=== PATIENT | male | born 1980 | race Caucasian/White ===

== ENCOUNTER 2024-12-23 19:51 | Observation (INO) | payer BC ==
[2024-12-23 20:18] LABS: Basophils % (A) 1 %; Eosinophils # (A) 0.2 k/uL (0-0.7); Eosinophils % (A) 3 %; HCT 45.8 % (39.0-53.0); HGB 15.4 gm/dL (13.0-17.5); Lymphocytes # (A) 1.7 k/uL (1.0-4.8); Lymphocytes % (A) 24 %; MCH 29.7 pg (25.0-35.0); MCHC 33.6 g/dL (31.0-37.0); MCV 88.2 fL (80.0-100.0); Mean Platelet Volume 8.9; Monocytes # (A) 0.5 k/uL (0-1.0); Monocytes % (A) 7 %; Neutrophils # (A) 4.5 k/uL (1.3-7.7); Neutrophils % (A) 63 %; Platelet Count 172 k/uL (150-450); RBC 5.19 m/uL (4.30-5.90); RDW 13.2 % (11.5-15.5); WBC 7.1 k/uL (3.8-10.6)
[2024-12-23 20:27] LABS: ALT 46 U/L (4-49); AST 32 U/L (17-59); African American GFR (CKD) >90 (>60 ml/min/1.73 sqM); Albumin 4.8 g/dL (3.5-5.0); Alkaline Phosphatase 44 U/L (38-126); Anion Gap 7 mmol/L; Blood Urea Nitrogen 16 mg/dL (9-20); Calcium 9.3 mg/dL (8.4-10.2); Carbon Dioxide 32 mmol/L (22-30); Chloride 101 mmol/L (98-107); Creatine Kinase 220 U/L (55-170); Glucose 144 mg/dL (74-99); Non-African American GFR(CKD) 82 (>60 ml/min/1.73 sqM); Potassium 3.7 mmol/L (3.5-5.1); Sodium 140 mmol/L (137-145); Total Bilirubin 0.8 mg/dL (0.2-1.3); Total Protein 6.9 g/dL (6.3-8.2)
--- NOTE | 2024-12-23 20:38 | CT ---
EXAMINATION TYPE: CODE STROKE: CT brain wo contr DATE OF EXAM: 12/23/2024 COMPARISON: CLINICAL INDICATION: Male, 44 years old with history of Neuro deficit, acute, stroke suspected; PHH, [place], stabbing pain behind right ear x2 days. Since 1845 tonight patient c/o right sided facial numbnes s, blurry vision to right eye, asymmetrical smile. TECHNIQUE: CT of the brain performed without contrast with sagittal and coronal reformats. CT DLP: 306.[address] CTDI: mGy Automated exposure control for dose reduction was used. FINDINGS: There is no acute intracranial hemorrhage, mass effect, or midline shift identified. The ventricles and sulci are within normal limits in size. The globes are intact and the visualized sinuses are marcela ar. IMPRESSION: No acute intracranial hemorrhage, mass effect, or midline shift is seen. [facility], , 12/23/2024 8:36 PM
--- NOTE | 2024-12-23 20:38 | ED ---
General Adult HPI - General Chief complaint: Neuro Symptoms/Deficit Stated complaint: chills ear pain blurry eyes Time Seen by Provider: 12/23/24 19:55 Source: patient, family Mode of arrival: ambulatory Limitations: no limitations - History of Present Illness Initial comments: 44-year-old male with past medical history of hypertension, hyperlipidemia, previously diabetic who presents emergency department with pain behind the right ear. States that the symptoms started 2 days ago. His blood pressure has been running on the high side. Typically this is well-controlled. Tonight at 6:45 PM the patient had sudden onset of right sided facial numbness and facial droop. He reports to some blurred vision to the right eye. He denies any numbness, tingling or weakness in his arm or leg. No expressive aphasia. He denies any head injury. No recent fevers. No history of strokes. He took some Tylenol for the pain behind his ear. No other alleviating, precipitating modifying factors - Related Data Allergies Allergy/AdvReac Type Severity Reaction Status Date / Time No Known Allergies Allergy Verified 12/23/24 20:01 Review of Systems ROS Statement: Those systems with pertinent positive or pertinent negative responses have been documented in the HPI. ROS Other: All systems not noted in ROS Statement are negative. Past Medical History Past Medical History: Diabetes Mellitus, Hyperlipidemia, Hypertension History of Any Multi-Drug Resistant Organisms: None Reported Past Surgical History: Tonsillectomy Past Psychological History: No Psychological Hx Reported Smoking Status: Never smoker Past Alcohol Use History: None Reported Past Drug Use History: None Reported General Exam Limitations: no limitations General appearance: alert, in no apparent distress Head exam: Present: atraumatic, normocephalic, normal inspection Eye exam: Present: normal appearance, PERRL, EOMI. Absent: scleral icterus, conjunctival injection, periorbital swelling ENT exam: Present: other (Patient appears to have a lag with blinking the right eye. He does appear to have flattening of the right nasolabial fold. He is able to wrinkle his forehead at original exam) Neck exam: Present: normal inspection. Absent: tenderness, meningismus, lymphadenopathy Respiratory exam: Present: normal lung sounds bilaterally. Absent: respiratory distress, wheezes, rales, rhonchi, stridor Cardiovascular Exam: Present: regular rate, normal rhythm, normal heart sounds. Absent: systolic murmur, diastolic murmur, rubs, gallop, clicks GI/Abdominal exam: Present: soft, normal bowel sounds. Absent: distended, tenderness, guarding, rebound, rigid Extremities exam: Present: normal inspection, full ROM, normal capillary refill. Absent: tenderness, pedal edema, joint swelling, calf tenderness Back exam: Present: normal inspection Neurological exam: Present: alert, oriented X3 Skin exam: Present: warm, dry, intact, normal color. Absent: rash Course Vital Signs 12/23/24 12/23/24 12/23/24 19:54 20:00 20:05 Temperature 97.8 F Pulse Rate 90 68 74 Respiratory 18 18 Rate Blood Pressure 186/108 143/103 181/100 O2 Sat by Pulse 100 100 Oximetry 12/23/24 12/23/24 20:40 21:01 Temperature Pulse Rate 67 65 Respiratory 16 16 Rate Blood Pressure 171/100 153/98 O2 Sat by Pulse 99 99 Oximetry Medical Decision Making - Medical Decision Making Was pt. sent in by a medical professional or institution (, PA, CLINICAL RESEARCH SPEC, urgent care, hospital, or intermediate...) When possible be specific @ -No Did you speak to anyone other than the patient for history (EMS, parent, family, police, friend...)? What history was obtained from this source @ -Spoke with for history Did you review nursing and triage notes (agree or disagree)? Why? @ -I reviewed and agree with nursing and triage notes Were old charts reviewed (outside hosp., previous admission, EMS record, old EKG, old radiological studies, urgent care reports/EKG's, intermediate records)? Report findings @ -No old charts were reviewed Differential Diagnosis (chest pain, altered mental status, abdominal pain women, abdominal pain men, vaginal bleeding, weakness, fever, dyspnea, syncope, he adache, dizziness, GI bleed, back pain, seizure, CVA, palpatations, mental health, musculoskeletal)? @ -Differential CVA Ischemic stroke, hemorrhagic stroke, brain tumor, atypical migraine, Wernicke's encephalopathy, seizure, multiple sclerosis, meningitis, encephalitis, hypoglycemia, Guillain-Quesada, electrolytes disturbance, myasthenia gravis.... This is not meant to be an all-inclusive list EKG interpreted by me (3pts min.). @ -yes and demonstrates sinus rhythm with a rate of 67. AR interval 192. QRS 109. QTc of 425. No acute ST segment elevations or depressions X-rays interpreted by me (1pt min.). @ -Yes and demonstrates no acute process CT interpreted by me (1pt min.). @ -yes and demonstrates no acute process U/S interpreted by me (1pt. min.). @ -None done What testing was considered but not performed or refused? (CT, X-rays, U/S, labs)? Why? @ -None What meds were considered but not given or refused? Why? @ -tnkase however out way benefits Did you discuss the management of the patient with other professionals (professionals i.e. DrDo, PA, CLINICAL RESEARCH SPEC, lab, RT, psych nurse, director social, interior systems carpenter, teacher, event security officer, transplant case manager)? Give summary @ -Spoke with Dr. Crow about the patient. Also spoke with Dr. Olson who will admit the patient Was smoking cessation discussed for >3mins.? @ -No Was critical care preformed (if so, how long)? @ -yes, 35 minutes for code thrombolytic Were there social determinants of health that impacted care today? How? (Homelessness, low income, unemployed, alcoholism, drug addiction, transportation, low edu. Level, literacy, decrease access to med. care, nursing home, rehab)? @ -No Was there de-escalation of care discussed even if they declined (Discuss DNR or withdrawal of care, Hospice)? DNR status @ -No What co-morbidities impacted this encounter? (DM, HTN, Smoking, COPD, CAD, Cancer, CVA, ARF, Chemo, Hep., AIDS, mental health diagnosis, sleep apnea, morbid obesity)? @ -Hypertension, hyperlipidemia, history of diabetes before weight loss Was patient admitted / discharged? Hospital course, mention meds given and route, prescriptions, significant lab abnormalities, going to OR and other pertinent info. @ -Upon arrival patient seen and evaluated in bed 6. Thorough history and physical exam was performed. Patient does have some flattening of his nasolabial fold. NIH is 1. He does have subjective numbness. Last known well was 1845. Code stroke is activated. I did speak with Dr. Winter CT and CTA was performed. Scans are negative. Did discuss results with the patient and his at bedside. NIH is 1. TNKase is not given as risks of administration are too high. Patient is reevaluated on multiple occasions and patient's facial droop visibly gets worse. His paralysis now involves the right forehead, right eye as well as the lower half of the face. 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 He is started on steroids and valacyclovir. Patient was given an aspirin. Recommended overnight observation for which she was agreeable. Spoke with Dr. Olson for the admission Undiagnosed new problem with uncertain prognosis? @ -No Drug Therapy requiring intensive monitoring for toxicity (Heparin, Nitro, Insulin, Cardizem)? @ -No Were any procedures done? @ -No Diagnosis/symptom? @ -Acute right sided facial droop, suspected Shepherd's Acute, or Chronic, or Acute on Chronic? @ -Acute Uncomplicated (without systemic symptoms) or Complicated (systemic symptoms)? @ -Complicated Side effects of treatment? @ -No Exacerbation, Progression, or Severe Exacerbation? @ -No Poses a threat to life or bodily function? How? (Chest pain, USA, CT, pneumonia, PE, COPD, DKA, ARF, appy, cholecystitis, CVA, Diverticulitis, Homicidal, Suicidal, threat to staff... and all critical care pts) @ -No - Lab Data Result diagrams: 12/23/24 20:05 12/23/24 20:05 Lab Results 12/23/24 12/23/24 12/23/24 Range/Units 20:05 20:05 20:05 WBC 7.1 (3.8-10.6) k/uL RBC 5.19 (4.30-5.90) m/uL Hgb 15.4 (13.0-17.5) gm/dL Hct 45.8 (39.0-53.0) % MCV 88.2 (80.0-100.0) fL MCH 29.7 (25.0-35.0) pg MCHC 33.6 (31.0-37.0) g/dL RDW 13.2 (11.5-15.5) % Plt Count 172 (150-450) k/uL MPV 8.9 Neutrophils % 63 % Lymphocytes % 24 % Monocytes % 7 % Eosinophils % 3 % Basophils % 1 % Neutrophils # 4.5 (1.3-7.7) k/uL Lymphocytes # 1.7 (1.0-4.8) k/uL Monocytes # 0.5 (0-1.0) k/uL Eosinophils # 0.2 (0-0.7) k/uL Basophils # 0.0 (0-0.2) k/uL PT 10.2 (10.0-12.5) sec INR 0.9 (<1.2) APTT 23.1 (22.0-30.0) sec Sodium 140 (137-145) mmol/L Potassium 3.7 (3.5-5.1) mmol/L Chloride 101 (98-107) mmol/L Carbon Dioxide 32 H (22-30) mmol/L Anion Gap 7 mmol/L BUN 16 (9-20) mg/dL Creatinine 1.08 (0.66-1.25) mg/dL Est GFR (CKD-EPI)AfAm >90 (>60 ml/min/1.73 sqM) Est GFR (CKD-EPI)NonAf 82 (>60 ml/min/1.73 sqM) Glucose 144 H (74-99) mg/dL POC Glucose (mg/dL) (70-110) mg/dL POC Glu Metal Furnace Operator ID Calcium 9.3 (8.4-10.2) mg/dL Total Bilirubin 0.8 (0.2-1.3) mg/dL AST 32 (17-59) U/L ALT 46 (4-49) U/L Alkaline Phosphatase 44 (38-126) U/L Creatine Kinase 220 H (55-170) U/L Troponin I (0.000-0.034) ng/mL Total Protein 6.9 (6.3-8.2) g/dL Albumin 4.8 (3.5-5.0) g/dL 12/23/24 12/23/24 Range/Units 20:05 20:51 WBC (3.8-10.6) k/uL RBC (4.30-5.90) m/uL Hgb (13.0-17.5) gm/dL Hct (39.0-53.0) % MCV (80.0-100.0) fL MCH (25.0-35.0) pg MCHC (31.0-37.0) g/dL RDW (11.5-15.5) % Plt Count (150-450) k/uL MPV Neutrophils % % Lymphocytes % % Monocytes % % Eosinophils % % Basophils % % Neutrophils # (1.3-7.7) k/uL Lymphocytes # (1.0-4.8) k/uL Monocytes # (0-1.0) k/uL Eosinophils # (0-0.7) k/uL Basophils # (0-0.2) k/uL PT (10.0-12.5) sec INR (<1.2) APTT (22.0-30.0) sec Sodium (137-145) mmol/L Potassium (3.5-5.1) mmol/L Chloride (98-107) mmol/L Carbon Dioxide (22-30) mmol/L Anion Gap mmol/L BUN (9-20) mg/dL Creatinine (0.66-1.25) mg/dL Est GFR (CKD-EPI)AfAm (>60 ml/min/1.73 sqM) Est GFR (CKD-EPI)NonAf (>60 ml/min/1.73 sqM) Glucose (74-99) mg/dL POC Glucose (mg/dL) 112 H (70-110) mg/dL POC Glu Metal Furnace Operator ID Alistair Ranjana Calcium (8.4-10.2) mg/dL Total Bilirubin (0.2-1.3) mg/dL AST (17-59) U/L ALT (4-49) U/L Alkaline Phosphatase (38-126) U/L Creatine Kinase (55-170) U/L Troponin I <0.012 (0.000-0.034) ng/mL Total Protein (6.3-8.2) g/dL Albumin (3.5-5.0) g/dL Disposition Clinical Impression: Facial droop, Shepherd's palsy Disposition: ADMITTED IP TO THIS HOSP Condition: Stable Is patient prescribed a controlled substance at d/c from ED?: No Time of Disposition: 21:41 Decision to Admit Reason: Admit from EC Decision Date: 12/23/24 Decision Time: 21:41
[2024-12-23 20:47] LABS: INR 0.9 (<1.2); Partial Thromboplastin Time 23.1 sec (22.0-30.0); Prothrombin Time 10.2 sec (10.0-12.5)
[2024-12-23 20:53] LABS: Glucose,Whole Blood 112 mg/dL (70-110)
--- NOTE | 2024-12-23 21:04 | CT ---
EXAMINATION TYPE: CT angio head neck DATE OF EXAM: 12/23/2024 8:58 PM COMPARISON: None. CLINICAL INDICATION: Male, 44 years old with history of Neuro deficit, acute, stroke suspected, [place], s tabbing pain behind right ear x2 days. Since 184 tonight patient c/o right sided facial numbness, bl urry vision to right eye, asymmetrical smile., TECHNIQUE: Axially acquired helical CT Angiogram of the Neck was obtained with and without contrast. Axial images are supplemented with coronal and sagittal MIP reconstructions. 3D reconstructions were also performed and were post-processed at an independent workstation. Estimated carotid stenosis was calculated using the NASCET criteria. Contrast CTA of the [place] of [place] was performed 3-D recons truction imaging obtained at a separate workstation. IV CONTRAST: without and with IV Contrast, patient injected with 65 mL of Isovue 370. (None if empty) CT DLP: 366.7 mGycm, Automated exposure control for dose reduction was used. FINDINGS: NECK: Right carotid system: Mild plaque is seen of the right common carotid artery. There is mild plaque a lso noted at the carotid bulb and proximal ICA. No significant diameter reduction. ECA is patent. Right vertebral artery appears unremarkable. Left carotid system: Mild plaque is seen of the left common carotid artery. There is mild plaque als o noted at the carotid bulb and proximal ICA. No significant diameter reduction. ECA is patent. Lef t vertebral artery appears unremarkable. BRAIN: Vertebrobasilar system as well as intracranial portions of the internal carotid arteries and their ma janelle tributaries are patent. I do not see evidence for sizable aneurysm or vascular malformation. Pl ease note MRI provides greater sensitivity and specificity. Visualized brain appears grossly unremar kable. IMPRESSION: 1. No evidence for hemodynamically significant stenosis at the carotid bifurcations. No significant diameter reduction to account for the patient's symptoms. 2. No evidence for intracranial aneurysm or high-grade stenosis. [facility], , 12/23/2024 9:02 PM
--- NOTE | 2024-12-23 21:10 | XR ---
EXAMINATION TYPE: XR chest 2V DATE OF EXAM: 12/23/2024 9:05 PM COMPARISON: None. CLINICAL INDICATION: Male, 44 years old with history of altered mental status, TECHNIQUE: Frontal and lateral views of the chest are obtained. FINDINGS: There is no focal air space opacity, pleural effusion, or pneumothorax seen. The cardiac silhouette size is within normal limits. The osseous structures are intact. IMPRESSION: No acute cardiopulmonary process. [facility], , 12/23/2024 9:08 PM
[2024-12-23] MEDS: HYDROcodone/APAP 5-325MG 1 EACH TAB PO STA (21:17)
[2024-12-23] MEDS: predniSONE 20 MG TAB PO SCH (21:52)
[2024-12-23] MEDS: ASPIRIN 325 MG TAB PO STA (21:52)
--- NOTE | 2024-12-23 22:55 | P.HPIM ---
History of Present Illness H&P Date: 12/23/24 Chief Complaint: facial weakness 44-year-old male with hyperlipidemia hypertension Patient coming in for sudden onset facial weakness started this evening at 7 PM, patient was concerned about a stroke upon arrival to the ED his blood pressure was elevated code stroke was activated patient did not have any other focal neurodeficits except weakness of the right side of the face. Imaging was unremarkable. 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 He denies any headache changes in his vision or hearing Patient continues to have right-sided facial weakness he claims that this has never happened to him before denies any history of strokes he denies any recent travel or hospital stay he denies any history of blood clots he denies any arrhythmia or irregular heartbeat however he has been told in the past that he has PVCs Patient does smokeless tobacco otherwise denies any heavy alcohol or illicit drugs review of systems Pertinent positives as noted in HPI. All other systems were reviewed and are negative on exam Constitutional: No acute distress, conversant, pleasant Eyes: Anicteric sclerae, moist conjunctiva, Pupils equal round reactive to light ENMT: NC/AT Oropharynx clear, no erythema, or exudates, otoscopic ear exam shows haziness and dullness over the right tympanic membrane Neck: Supple, no masses, or JVD No carotid bruits No thyromegaly Lungs: Clear to auscultation Clear to percussion Normal respiratory effort, no accessory muscle use Cardiovascular: Heart regular in rate and rhythm, No murmurs, gallops, or rubs No peripheral edema Abdominal: Soft Nontender, no guarding, rebound or rigidity Abdomen moving with respiration Normoactive bowel sounds Extremities: No digital cyanosis No clubbing Pedal pulses intact and symmetrical Radial pulses intact and symmetrical No calf tenderness Psychiatric: Alert and oriented to person, place and time Appropriate affect fair judgement Neuro Muscles Strength 5/5 in all 4 extremities Sensation to light touch grossly present throughout Patient has remarkable right-sided facial weakness and the pattern of lower motor neuron Past Medical History Past Medical History: Hyperlipidemia, Hypertension History of Any Multi-Drug Resistant Organisms: None Reported Past Surgical History: Tonsillectomy Past Anesthesia/Blood Transfusion Reactions: No Reported Reaction Past Psychological History: No Psychological Hx Reported Smoking Status: Never smoker Past Alcohol Use History: None Reported Past Drug Use History: None Reported Medications and Allergies Allergies Allergy/AdvReac Type Severity Reaction Status Date / Time No Known Allergies Allergy Verified 12/23/24 20:01 Physical Exam Vitals: Vital Signs Temp Pulse Pulse Resp BP BP Pulse Ox 12/23/24 22:16 98.2 F 55 L 16 156/93 99 12/23/24 21:01 65 16 153/98 99 12/23/24 20:40 67 16 171/100 99 12/23/24 20:05 74 18 181/100 100 12/23/24 20:00 68 143/103 12/23/24 19:54 97.8 F 90 18 186/108 100 Intake and Output 12/23/24 12/23/24 12/23/24 06:59 14:59 22:59 Other: # Voids 1 Weight 120.202 kg Results CBC & Chem 7: 12/23/24 20:05 12/23/24 20:05 Labs: Abnormal Lab Results - Last 24 Hours (Table) 12/23/24 12/23/24 Range/Units 20:05 20:51 Carbon Dioxide 32 H (22-30) mmol/L Glucose 144 H (74-99) mg/dL POC Glucose (mg/dL) 112 H (70-110) mg/dL Creatine Kinase 220 H (55-170) U/L Thrombosis Risk Factor Assmnt - Choose All That Apply Each Factor Represents 1 point: Age 41-60 years, Obesity (BMI >25) Thrombosis Risk Factor Assessment Total Risk Factor Score: 2 Thrombosis Risk Factor Assessment Level: Low Risk Assessment and Plan Assessment: 44-year-old male hypertension hyperlipidemia no history of stroke coming in with right facial weakness I discussed case with ED doctor and accepted the admission for suspected Shepherd's palsy with anticipated length of stay less than 2 midnights Suspected right-sided Shepherd's palsy Patient initiated on prednisone 80 mg p.o. daily Valacyclovir 1 g 3 times a day Neuro consult CT of the brain with and without contrast and CTA of the head and neck unremar kable overall Continue with neurochecks Status post full dose aspirin 325 mg continue with 81 mg daily Check echocardiogram Check lipid panel PT/OT Hypertension urgency Improved spontaneously Continue with lisinopril 10 mg p.o. daily Hyperlipidemia Continue with atorvastatin 10 mg nightly Blood work overall unremarkable with white count 7.1 hemoglobin 15.4 hematocrit 45.8 platelet count 172 Renal function unremarkable sodium 140 potassium 3.7 anion gap 7 BUN 16 creatinine 1 Troponins negative GI prophylaxis Pepcid 40 mg twice daily DVT prophylaxis Lovenox 40 mg subcu daily
[2024-12-23] MEDS: predniSONE 20 MG TAB PO STA (23:06)
[2024-12-23] MEDS: FAMOTIDINE 20 MG TAB PO SCH (23:06)
[2024-12-23] MEDS: SODIUM CHLORIDE 0.9% 1,000 ML IV SCH (23:07)
[2024-12-23] MEDS: valACYclovir HCL 1,000 MG TABLET PO SCH (23:07)
[2024-12-23] MEDS: KETOROLAC 15 MG/ML 1 ML VIAL IVP PRN (23:16)
[2024-12-23] MEDS: ARTIFICIAL TEARS OINTMENT 3.5 GM TUBE RIGHT EYE SCH (23:44)
[2024-12-24 05:06] VITALS: RESP 16; TEMP 97.7
[2024-12-24 06:11] LABS: Glucose,Whole Blood 144 mg/dL (70-110)
[2024-12-24 08:12] LABS: Chol/HDL Ratio 3.03 Ratio; LDL Cholesterol,Calculated 78.1 mg/dL (0.0-131.0)
[2024-12-24] MEDS: ASPIRIN 81 MG PO SCH (09:05)
[2024-12-24] MEDS: predniSONE 20 MG TAB PO SCH (09:06)
[2024-12-24] MEDS: ENOXAPARIN 40 MG/0.4 ML SYRINGE SQ SCH (09:06)
[2024-12-24] MEDS: lisinopriL 10 MG TAB PO SCH (09:06)
[2024-12-24 11:12] VITALS: PULSE 78
[2024-12-24 11:15] LABS: Glucose,Whole Blood 174 mg/dL (70-110)
[2024-12-24] MEDS: ARTIFICIAL TEARS-HYPROMELLOSE DROPS 15 ML BTL RIGHT EYE PRN (12:30)
--- NOTE | 2024-12-24 15:43 | P.CNNES ---
History of Present Illness Consult date: 12/24/24 Requesting physician: Jessica Garrison Reason for Consult: right facial droop, suspected bells History of Present Illness: Patient is a 44-year-old right-handed male, with history of hypertension, hyperlipidemia, came to the hospital yesterday at 7:51 PM with right facial weakness. Neurology consulted to rule out Shepherd's palsy. Patient tells me that his symptoms started 3 days ago on 12/21/2024, with pain in the right retro-auricular region. He noticed a small lump there as well. Next day on Friday, the pain started radiating up towards the right parietal region, or down the anterior neck region. Yesterday on , he noticed change in the taste sensation, everything appeared bland, numb sensation in the mouth only on the right side. After he was done with a Zoom meeting at 7 PM, he noticed right facial weakness, therefore his brought him to the hospital. He states his hearing is good, denies any diplopia, no numbness or tingling or focal weakness. Denies any rash. Denies any loss of hearing, any slurred speech. Vital signs on arrival blood pressure 186/108, pulse of 90 temperature 97.8. Repeat blood pressure 143/103. Blood test shows normal CBC, PT PTT, normal CMP. Troponin negative. CK2 20. CT head showed no acute intracranial process. I personally reviewed CT head, agree with the findings. Chest x-ray showed no acute cardiopulmonary process. EKG showed sinus rhythm. Home medication include Lipitor 10 mg, Pepcid 40 mg and lisinopril 20 mg. Patient is a non-smoker, does not drink alcohol. Occasionally chews tobacco. Patient has history of hypertension, hyperlipidemia. 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 His last A1c was 4.93 weeks ago. Review of Systems All pertinent positive and negative review of systems mentioned in the HPI. Otherwise completely unremarkable. Past Medical History Past Medical History: Diabetes Mellitus, Hyperlipidemia, Hypertension History of Any Multi-Drug Resistant Organisms: None Reported Past Surgical History: Tonsillectomy Past Anesthesia/Blood Transfusion Reactions: No Reported Reaction Past Psychological History: No Psychological Hx Reported Smoking Status: Never smoker Past Alcohol Use History: None Reported Past Drug Use History: None Reported Medications and Allergies Home Medications Medication Instructions Recorded Confirmed Type Artificial Tears-Hypromellose 2 drops RIGHT EYE QID 5 Days #30 ml 12/24/24 Rx [Artificial Tear Drops] Aspirin 81 mg PO DAILY tab 12/24/24 Rx Atorvastatin [Lipitor] 10 mg PO HS tab 12/24/24 Rx Famotidine [Pepcid] 40 mg PO BID tab 12/24/24 Rx lisinopriL [Zestril] 10 mg PO DAILY tab 12/24/24 Rx predniSONE [Deltasone] 10 mg PO DAILY 15 Days #75 tab 12/24/24 Rx valACYclovir HCL [Valtrex] 1,000 mg PO TID 7 Days #21 tab 12/24/24 Rx Allergies Allergy/AdvReac Type Severity Reaction Status Date / Time No Known Allergies Allergy Verified 12/24/24 09:51 Physical Examination - Vital Signs Vital Signs: Vital Signs Temp Pulse Pulse Resp BP BP Pulse Ox 12/24/24 11:12 78 16 169/88 98 12/24/24 07:38 97.7 F 64 16 131/81 97 12/24/24 05:00 97.7 F 63 16 121/72 97 12/24/24 02:00 63 16 12/23/24 23:04 97.9 F 52 L 17 152/91 97 12/23/24 22:16 98.2 F 55 L 16 156/93 99 12/23/24 21:01 65 16 153/98 99 12/23/24 20:40 67 16 171/100 99 12/23/24 20:05 74 18 181/100 100 12/23/24 20:00 68 143/103 12/23/24 19:54 97.8 F 90 18 186/108 100 Intake and Output 12/24/24 12/24/24 12/24/24 06:59 14:59 22:59 Intake Total 240 Balance 240 Intake: Oral 240 Other: Voiding Method Toilet # Voids 1 Weight 124.2 kg Patient is a middle aged male, very pleasant, in no acute distress. Patient is alert awake oriented to time place and person. Speech and language functions are normal. Patient can name and repeat very well. No aphasia or dysarthria. Attention, concentration and fund of knowledge is adequate. On cranial nerve examination, pupils are equal, round and reacting to light, visual cervantes are full on confrontation, with no neglect on double simultaneous stimulation. Extraocular muscles are intact with no nystagmus. Patient has right facial weakness, peripheral type, which is complete. His tongue protrudes to the midline. Palatal elevation and sensation normal, hearing and shoulder shrug normal, facial sensation normal. On muscle strength testing, there is no pronator drift and the strength is normal in arms and legs distally and proximally. Deep tendon reflexes are symmetric 2 at the biceps, 2 brachioradialis, 2 at the knees 1 ankles and plantars downgoing. Sensory to touch is equal with no neglect on double simultaneous stimulation. Cerebellar function showed no ataxia for [id number] testing. No dysdiadochokinesia. No ataxia for eiif-ra-epso testing on either side. Tone an d bulk of muscles normal. Gait deferred.. On general examination, there is no carotid bruit or murmur, S1-S2 audible. Chest is clear on consultation. Abdomen is soft nontender. No organomegaly, b owel sounds present. Peripheral pulses are present. No peripheral edema. Results - Laboratory Findings CBC and BMP: 12/23/24 20:05 12/23/24 20:05 Abnormal Lab Findings: Abnormal Labs 12/23/24 12/23/24 12/24/24 20:05 20:51 06:10 Carbon Dioxide 32 H Glucose 144 H POC Glucose (mg/dL) 112 H 144 H Creatine Kinase 220 H 12/24/24 11:13 Carbon Dioxide Glucose POC Glucose (mg/dL) 174 H Creatine Kinase Assessment and Plan Assessment: * Shepherd's palsy, right side, complete. * Hypertension * Hyperlipidemia * Prior history of diabetes, in remission. Last A1c 4.9. Plan: Patient has right Shepherd's palsy. Recommend continuing prednisone 60 mg daily for 10 days, then decrease by 10 mg daily until off. Continue Valtrex 1 g 3 times daily for 7 days Lacri-Lube to right eye at night to prevent corneal ulcer. May need an eye patch. Artificial tears to be used every 1-2 hours right eye. May follow-up with neurologist outpatient. 2-D echo revealed normal left ventricular size and systolic function. LVEF 55 to 60%. Moderately increased left ventricular diastolic volume. No obvious regional wall motion abnormalities. Moderately increased left atrial volume. No significant valvular abnormalities. CTA head and neck showed: No evidence for hemodynamically significant stenosis at the carotid bifurcations. No significant diameter reduction to account for the patient's symptoms. No evidence for intracranial aneurysm or high-grade stenosis. Fasting a.m. lipid panel cholesterol 154, LDL 78, HDL 50, triglycerides 125. Continue Lipitor 10 mg daily. Hemoglobin A1c 4.9, checked about 3 weeks ago. Optimize control of blood pressure. Continue aspirin 81 mg daily. Telemetry monitoring shows no arrhythmia. Neurologically clear for discharge. Thank you for the consult.
--- NOTE | 2024-12-24 16:05 | CA ---
Transthoracic Echo Report Name: Mike Tan Age: 44 Gender: M : 1980 Exam Date: 12/24/2024 11:15 Exam Location: [facility] Ht (in): 76 Wt (lb): 265 Ordering Physician: Chani Ariza MD Attending/Referring Phys: [id number], Annita Loom Fixer Supervisor Deuce Carroll RDCS Procedure CPT: Indications: code stroke Cardiac Hx: HTN Technical Quality: Good Contrast 1: N/A Total Dose (mL): Contrast 2: Total Dose (mL): MEASUREMENTS (Male / Female) Normal Values 2D ECHO LV Diastolic Diameter PLAX 5.6 cm 4.2 - 5.9 / 3.9 - 5.3 cm LV Systolic Diameter PLAX 4.1 cm IVS Diastolic Thickness 1.0 cm 0.6 - 1.0 / 0.6 - 0.9 cm LVPW Diastolic Thickness 1.0 cm 0.6 - 1.0 / 0.6 - 0.9 cm LV Relative Wall Thickness 0.4 RV Internal Dim ED PLAX 3.5 cm LVOT Diameter 2.4 cm Aortic Root Diameter 2.9 cm LA Systolic Diameter LX 4.0 cm 3.0 - 4.0 / 2.7 - 3.8 cm LV Diastolic Volume MOD BP 180.6 cm??? 67 - 155 / 56 - 104 cm??? LV Systolic Volume MOD BP 69.2 cm??? 22 - 58 / 19 - 49 cm??? LV Ejection Fraction MOD BP 61.7 % >= 55 % LV Cardiac Index MOD BP 3427.7 cm???/min???m??? LV Diastolic Volume MOD 4C 178.5 cm??? LV Systolic Volume MOD 4C 60.7 cm??? LV Ejection Fraction MOD 4C 66.0 % LV Cardiac Index MOD 4C 3623.5 cm???/min???m??? LV Diastolic Length 4C 9.7 cm LV Systolic Length 4C 7.3 cm LV Diastolic Volume MOD 2C 178.3 cm??? LV Systolic Volume MOD 2C 74.9 cm??? LV Ejection Fraction MOD 2C 58.0 % LV Cardiac Index MOD 2C 3181.7 cm???/min???m??? LV Diastolic Length 2C 9.5 cm LV Systolic Length 2C 7.8 cm LA Volume 92.4 cm??? 18 - 58 / 22 - 52 cm??? LA Volume Index 36.0 cm???/m??? 16 - 28 cm???/m??? DOPPLER AV Peak Velocity 185.8 cm/s AV Peak Gradient 13.8 mmHg AV Mean Velocity 135.8 cm/s AV Mean Gradient 8.0 mmHg AV Velocity Time Integral 37.0 cm LVOT Peak Velocity 78.9 cm/s LVOT Peak Gradient 2.5 mmHg LVOT Velocity Time Integral 33.6 cm LVOT Stroke Volume 145.8 cm??? LVOT Stroke Volume Index 58.4 ml/m??? LVOT Cardiac Index 4486.9 cm???/min???m??? AV Area Cont Eq vti 3.9 cm??? AV Area Cont Eq pk 1.8 cm??? MV Area PHT 2.5 cm??? Mitral E Point Velocity 67.1 cm/s Mitral A Point Velocity 59.1 cm/s Mitral E to A Ratio 1.1 MV Deceleration Time 297.7 ms TR Peak Velocity 129.0 cm/s TR Peak Gradient 6.7 mmHg Right Atrial Pressure 5.0 mmHg Pulmonary Artery Systolic Pressu 11.7 mmHg Right Ventricular Systolic Press 11.7 mmHg FINDINGS Left Ventricle Left ventricular ejection fraction is estimated at 55-60 %. Moderately increased left ventricular diastolic volume. Mildly increased left ventricular systolic volume. Normal left ventricular systolic function with no obvious regional wall motion abnormalities. Right Ventricle Mild right ventricular dilatation. Right ventricular systolic pressure within normal limits. Right Atrium Normal right atrial size. Left Atrium Moderately increased left atrial volume. Mitral Valve Structurally normal mitral valve. No mitral stenosis. No mitral regurgitation. Aortic Valve Trileaflet aortic valve. No aortic valve stenosis or regurgitation. Tricuspid Valve Structurally normal tricuspid valve. No tricuspid stenosis. Trace tricuspid regurgitation. Pulmonic Valve Structurally normal pulmonic valve. No pulmonic stenosis. No pulmonic regurgitation. Pericardium No pericardial effusion. No pleural effusion. Aorta Normal size aortic root and proximal ascending aorta. CONCLUSIONS Normal LV size and systolic function. No significant abnormality on the Doppler exam. No pericardial effusion Previewed by: Dr. Jose Antonio Mancera MD (Electronically Signed) Final Date: 24 December 2024 16:03
[2024-12-24 16:06] LABS: Glucose,Whole Blood 186 mg/dL (70-110)
[2024-12-24 16:09] VITALS: BP 155/78
--- NOTE | 2024-12-24 17:19 | P.DS ---
Providers Date of admission: 12/23/24 21:46 Expected date of discharge: 12/24/24 Attending physician: MD Veronique Ellington Consults: 12/23/24 21:44 Consult Physician Urgent Consulting Provider: Galen Truong Consult Reason/Comments: right facial droop, suspected bells Do you want consulting provider notified?: Yes Primary care physician: Osiel Oneill Hospital Course: Discharge Diagnosis: Shepherd's Palsy Hospital Course: The patient is a 44-year-old male with hyperlipidemia, hypertension who presented with sudden onset facial weakness. Patient was concerned about a stroke upon arrival to the ED his blood pressure was elevated code stroke was activated patient did not have any other focal neurodeficits except weakness of the right side of the face. CT of the head was unremarkable. CTA head and neck showed no evidence for hemodynamically significant stenosis at the carotid bifurcations. No significant diameter reduction to account for the patient's symptoms. No evidence for intracranial aneurysm or high-grade stenosis. ECHO showed normal systolic function. He was started on Valcyclovir 1000 mg TID and recieved prednisone 80 mg. Neurology was consulted and evaluated the patient. He remained stable, blood pressure had improved on the day of discharge. He was discharged on Valcyclovir 1000 mg TID for 7 days, Prednisone 60 mg daily with taper. He was also instructed to use Lacri-lube and artificial tears in the right eye. He is to follow up with neurology as needed. Patient seen and examined at bedside. Vital signs reviewed and stable. General: [nontoxic], [no distress], [appears at stated age] Derm: [warm], [dry] Head: [atraumatic], [normocephalic], [symmetric] Eyes: [EOMI], [no lid lag], [anicteric sclera] Mouth: [no lip lesion], [mucus membranes moist] Cardiovascular: [S1S2 reg], [no murmur] Lungs: [CTA bilateral], [no rhonchi, no rales] , [no accessory muscle use] Abdominal: [soft], [ nontender to palpation], [no guarding], [no appreciable organomegaly] Ext: [no gross muscle atrophy], [no edema], [no contractures] Neuro: CN II-XI grossly intact, right sided facial weakness/facial droop noted Psych: [Alert], [oriented], [appropriate affect] A total of 30 minutes of time were spent preparing this complex discharge summary. Patient was discharged on 12/24/2024. Patient Condition at Discharge: Stable Plan - Discharge Summary Discharge Rx Participant: Yes New Discharge Prescriptions: New Artificial Tears-Hypromellose [Artificial Tear Drops] 2 drops RIGHT EYE QID 5 Days #30 ml Aspirin 81 mg PO DAILY tab predniSONE [Deltasone] 10 mg PO DAILY 15 Days #75 tab Atorvastatin [Lipitor] 10 mg PO HS tab lisinopriL [Zestril] 10 mg PO DAILY tab Famotidine [Pepcid] 40 mg PO BID tab valACYclovir HCL [Valtrex] 1,000 mg PO TID 7 Days #21 tab Discontinued Atorvastatin [Lipitor] 10 mg PO DAILY Famotidine [Pepcid] 40 mg PO DAILY lisinopriL [Zestril] 20 mg PO DAILY Discharge Medication List Artificial Tears-Hypromellose [Artificial Tear Drops] 2 drops RIGHT EYE QID 5 Days #30 ml 12/24/24 [Rx] Aspirin 81 mg PO DAILY tab 12/24/24 [Rx] Atorvastatin [Lipitor] 10 mg PO HS tab 12/24/24 [Rx] Famotidine [Pepcid] 40 mg PO BID tab 12/24/24 [Rx] lisinopriL [Zestril] 10 mg PO DAILY tab 12/24/24 [Rx] predniSONE [Deltasone] 10 mg PO DAILY 15 Days #75 tab 12/24/24 [Rx] valACYclovir HCL [Valtrex] 1,000 mg PO TID 7 Days #21 tab 12/24/24 [Rx] Follow up Appointment(s)/Referral(s): Osiel Oneill DO [Primary Care Provider] - 1-2 days (PLease call to schedule appointment) Patient Instructions/Handouts: Shepherd Palsy (DC) Discharge Disposition: HOME SELF-CARE
[2024-12-24] MEDS ORDERED: ATORVASTATIN 10 MG TAB PO SCH (21:00)
== END 2024-12-24 17:44 | disposition home or self-care (01) ==
LOC: EC 19:51 → 3SCARD 21:46
PROVIDERS: ADMIT Internal Medicine; ATTEND Internal Medicine
DX: G51.0 Bell's palsy (principal)
CPT/HCPCS: 96376; 96372; 96374; 99291; 36415; 93005; 93306; 97165; 80061; 80053; 82550; 84484; 85025; 85610; 85730; 71046; 70496; 70450; 70498; G0378 ×2; J1650; J1885 ×2; J7512 ×2; Q9967